=== PATIENT | female | born 1980 | race African-American/Black ===

== ENCOUNTER 2018-05-29 18:24 | Emergency (ER) | payer OTHER ==
[~2018-05-29] VITALS: Ht 160 cm; Wt 93.4 kg
[2018-05-29 18:53] LABS: URINE BILIRUBIN NEGATIVE (Negative); URINE BLOOD 1+ (Negative); URINE CLARITY CLEAR; URINE COLOR YELLOW; URINE GLUCOSE-RANDOM NEGATIVE (Negative); URINE KETONES NEGATIVE (Negative); URINE LEUKOCYTES-REFLEX NEGATIVE (Negative); URINE NITRITE-REFLEX NEGATIVE (Negative); URINE PROTEIN NEGATIVE (Negative); URINE SPECIFIC GRAVITY 1.025 (1.005-1.030); URINE UROBILINOGEN 0.2 E.U./dl (0.2-1.0)
[2018-05-29] MEDS ORDERED: NOHOMEMEDICATIONS (18:56)
[2018-05-29 18:59] LABS: SQUAMOUS >10 Many /LPF (0-3)
[2018-05-29 19:00] LABS: BACTERIA-REFLEX >30 Many /HPF (None Seen); CASTS None Seen /LPF (None Seen); CRYSTALS None Seen /LPF (None Seen); MUCUS 0-3 Light strn/LPF (None Seen); URINE RBC 3-10 Few /HPF (0-2); URINE WBC-REFLEX 0-5 Rare /HPF (0-5)
[2018-05-29 19:25] LABS: ABSOLUTE EOSINOPHILS 0.1 thou/uL (0.0-0.7); ABSOLUTE LYMPHOCYTES 2.5 thou/uL (0.8-5.3); ABSOLUTE MONOCYTES 0.5 thou/uL (0.0-1.2); ABSOLUTE NEUTROPHILS 4.4 thou/uL (1.6-8.1); BASOPHILS 0.6 %; EOSINOPHILS 1.9 %; HEMATOCRIT 39.6 % (37.0-47.0); HEMOGLOBIN 12.8 gm/dL (12.0-15.0); LYMPHOCYTES 33.5 %; MCHC 32.3 g/dL (28.0-37.0); MCV 83.4 fL (80.0-100.0); MONOCYTES 6.2 %; MPV 9.1 fl. (7.2-11.1); NUCLEATED RBCS 0 /100WBC; PLATELET COUNT* 276 thou/uL (150-400); POLYS 57.8 %; RBC 4.75 mil/uL (4.20-5.00); RDW-CV 13.5 % (10.5-14.5); WBC 7.6 thou/uL (4.0-11.0)
[2018-05-29 19:36] LABS: CALCIUM 8.6 mg/dL (8.5-10.1); CREATININE 0.8 mg/dL (0.6-1.3); POTASSIUM 3.6 mmol/L (3.5-5.1)
[2018-05-29 19:41] LABS: ALBUMIN 3.6 g/dL (3.4-5.0); TOTAL BILIRUBIN 0.2 mg/dL (<0.1-1.0); TOTAL PROTEIN 7.9 g/dL (6.4-8.2)
[2018-05-29 20:57] VITALS: BP 135/83
== END 2018-05-29 20:35 | disposition home or self-care (01) ==
LOC: M.ERS 18:24
PROVIDERS: Nurse Practitioner Family
DX: R10.32 Left lower quadrant pain (principal); Z88.0 Allergy status to penicillin